=== PATIENT | female | born 1975 | race Caucasian/White ===

== ENCOUNTER 2017-05-09 08:15 | Emergency (ER) | payer OTHER ==
[~2017-05-09] VITALS: Ht 172.7 cm; Wt 97.5 kg
[~2017-05-09 08:15] MED LIST: DELSYM30 MG/5 ML; LEVAQUIN500 MG; SINGULAIR10 MG; SYMBICORT 16010.2 GM
== END 2017-05-09 10:37 | disposition home or self-care (01) ==
LOC: ER 08:15
DX: B34.9 Viral infection, unspecified (principal)

== ENCOUNTER 2018-08-10 12:52 | Emergency (ER) | payer OTHER ==
[~2018-08-10] VITALS: Ht 180.3 cm; Wt 83.5 kg
== END 2018-08-10 18:14 | disposition home or self-care (01) ==
LOC: ER 12:52
DX: R07.89 Other chest pain (principal); M94.0 Chondrocostal junction syndrome [Tietze]; R06.02 Shortness of breath